=== PATIENT | male | born 1980 | race Caucasian/White ===

== ENCOUNTER 2024-07-21 21:57 | Emergency (ER) | payer MEDICAID ==
[~2024-07-21] VITALS: Ht 167.6 cm; Wt 129.3 kg
[2024-07-21 22:06] VITALS: PULSE 85; RESP 15; O2SAT 99
[2024-07-21] MEDS ORDERED: MIDAZOLAM HCL 100 MG in DEXT 5% WATER 80 ML IV ONE (22:30)
[2024-07-21] MEDS: MIDAZOLAM 100MG/100ML PMX 100 ML IV NR (22:49)
[2024-07-21 22:50] LABS: HEMATOCRIT. 22.7 % (42.0-52.0); MEAN CORPUSCULAR HEMOGLOBIN 27.1 pg (28.0-32.0); MEAN CORPUSCULAR HGB CONC 26.5 g/dL (31.0-37.0); MEAN CORPUSCULAR VOLUME 102.3 fL (80.0-94.0); MEAN PLATELET VOLUME 10.7 fl (7.4-10.4); PLATELET 120 x1000/uL (130-400); RED BLOOD CELL COUNT 2.22 mill/uL (4.7-6.1); RED CELL DISTRIBUTION WIDTH 23.3 % (11.6-14.6); WHITE BLOOD COUNT 34.3 x1000/uL (4.5-11.0)
[2024-07-21] MEDS: OCTREOTIDE ACETATE 50 MCG/ML 1ML IV STA (22:50)
[2024-07-21] MEDS: PANTOPRAZOLE SODIUM 40 MG/VIAL IV STA (22:50)
[2024-07-21 22:59] LABS: DIFFERENTIAL COMMENT 1
[2024-07-21 23:01] LABS: CHLORIDE 113 mEq/L (98-107); SODIUM 151 mEq/L (136-145)
[2024-07-21 23:02] LABS: CARBON DIOXIDE 11 mEq/L (21-32); INR 1.5; PARTIAL THROMBOPLASTIN TIME 24.6 sec (23.4-31.0)
[2024-07-21 23:07] LABS: CREATININE 2.7 mg/dL (0.6-1.3); GLUCOSE 164 mg/dL (70-105); UREA NITROGEN BLOOD 61 mg/dL (9-23)
[2024-07-21 23:09] LABS: ALANINE AMINOTRANSFERASE 31 IU/L (10-49); ALBUMIN 2.3 g/dL (3.2-4.8); ASPARTATE AMINOTRANSFERASE 69 IU/L (<34); BILIRUBIN DIRECT 1.1 mg/dL (<=3.0); CREATINE KINASE 341 IU/L (46-171); LACTATE DEHYDROGENASE 312 IU/L (120-246)
[2024-07-21 23:10] LABS: ANISOCYTOSIS 2+; PLATELET ESTIMATE DECREASED; PROTEIN TOTAL 5.9 g/dL (6.0-8.3)
[2024-07-21] MEDS: PIPERACILLIN/TAZO 3.375G/50ML 50 ML IV ONE (23:17)
[2024-07-21] MEDS: NOREPINEPHRINE 8MG/250ML PMX 250 ML IV ONE (23:17)
[2024-07-21 23:18] LABS: ETHANOL BLOOD < 10 mg/dL (<10); POTASSIUM 6.2 mEq/L (3.5-5.1); TROPONIN I HIGH SENSITIVITY 154 ng/L (3.0-53)
[2024-07-21] MEDS: OCTREOTIDE ACETATE 50 MCG/ML 1ML IV NR (23:20)
[2024-07-21 23:21] LABS: LACTIC ACID 24.4 mmol/L (0.4-2.0)
[2024-07-21] MEDS: ETOMIDATE 2MG/ML 10ML VIAL IV ONE (23:22)
[2024-07-21] MEDS: SUCCINYLCHOLINE CHLORIDE 200MG/10ML IV ONE (23:22)
[2024-07-22] VITALS (8 sets, daily range): PULSE 115–141; RESP 23–37; O2SAT 97–100
[2024-07-22] MEDS ORDERED: INSULIN REGULAR (HUMULIN R) 1000UNITS/10ML VIAL IV ONE (00:15)
[2024-07-22] MEDS ORDERED: CALCIUM GLUCONATE 1,000 MG in DEXT 5% WATER 100 ML IV ONE (00:15)
[2024-07-22] MEDS ORDERED: DEXTROSE 50% WATER 50ML SYRINGE IV ONE (00:15)
[2024-07-22] MEDS: OCTREOTIDE 1,000 MCG in SODIUM CHLORIDE 0.9% 100 ML IV STA (00:22)
[2024-07-22] MEDS: VANCOMYCIN 1G PREMIX 200 ML IV ONE (00:38)
[2024-07-22] MEDS: NOREPINEPHRINE 8MG/250ML PMX 250 ML IV ONE (01:06)
[2024-07-22 01:28] LABS: BG BASE EXCESS -17.4 mmol/L (-2.0-3.0); BG CARBOXYHEMOGLOBIN 0.3 % (0.5-1.5); BG DEOXYHEMOGLOBIN 1.5 % (0.0-5.0); BG FRACTION INSPIRED OXYGEN 100; BG METHEMOGLOBIN 0.3 % (0.5-1.5); BG OXYGEN SATURATION 98.5 % (94.0-98.0); BG OXYHEMOGLOBIN 97.9 % (94.0-98.0); BG PCO2 42.3 mmHg (35.0-48.0); BG PEEP (cmH2O) 0 cmH2O; BG PH 7.071 (7.350-7.450); BG SAMPLE SITE RIGHT RADIAL; BG TOTAL HEMOGLOBIN 11.8 g/dL (13.5-17.5); BG VENT MODE VENT - AC
[2024-07-22 01:50] LABS: HEMATOCRIT 41.5 % (42.0-52.0); HEMOGLOBIN 12.6 g/dL (14.0-18.0)
[2024-07-22] MEDS: CALCIUM GLUCONATE 1GM PREMIX 50 ML IV NR ×2 (02:08→17:58)
[2024-07-22] MEDS: SODIUM BICARBONATE 8.4% 50MEQ/50ML SYR IV NR ×3 (02:08→17:58)
[2024-07-22 02:23] LABS: TROPONIN I HIGH SENSITIVITY 244 ng/L (3.0-53)
[2024-07-22] MEDS: INSULIN REGULAR (HUMULIN R) 1000UNITS/10ML VIAL IV NR (02:23)
[2024-07-22] MEDS: DEXTROSE 50% WATER 50ML SYRINGE IV NR ×2 (02:23)
[2024-07-22] MEDS: ALBUTEROL (0.083%) 2.5MG/3ML NEB HHN SCH (02:30)
[2024-07-22] MEDS: LACTATED RINGERS IV NR (02:31)
[2024-07-22] MEDS ORDERED: ALBUTEROL (0.083%) 2.5MG/3ML NEB ONE (03:12)
[2024-07-22] MEDS ORDERED: PROPOFOL 10MG/ML 100ML 100 ML IV PRN (04:00)
[2024-07-22] MEDS: OCTREOTIDE 1,000 MCG in SODIUM CHLORIDE 0.9% 98 ML IV SCH (04:29)
[2024-07-22] MEDS: PANTOPRAZOLE 80 MG in SODIUM CHLORIDE 0.9% 100 ML IV SCH (05:11)
[2024-07-22 05:19] LABS: INR 2.3; PROTHROMBIN TIME 24.5 sec (9.6-11.0)
[2024-07-22 05:25] LABS: POTASSIUM 4.3 mEq/L (3.5-5.1)
[2024-07-22 05:27] LABS: CALCIUM 7.3 mg/dL (8.7-10.4)
[2024-07-22 05:36] LABS: T4 FREE 0.6 ng/dL (0.89-1.76); THYROID STIMULATING HORMONE 1.7 uIU/mL (0.55-4.78)
[2024-07-22 05:56] LABS: AMMONIA 130 uMol/L (<32)
[2024-07-22] MEDS: PIPERACILLIN/TAZO 3.375G/50ML 50 ML IV SCH (06:11)
[2024-07-22] MEDS: BLOOD SUGAR DIAGNOSTIC STRIP TEST SCH (06:27)
[2024-07-22] MEDS ORDERED: VANCOMYCIN 1G PREMIX 200 ML IV SCH (06:30)
[2024-07-22] MEDS: VANCOMYCIN 750MG PMX (XELLIA) 150 ML IV NR (06:53)
[2024-07-22] MEDS: ACETAMINOPHEN 1000MG/100ML 100 ML IV NR (07:47)
[2024-07-22] MEDS: NOREPINEPHRINE 8MG/250ML PMX 250 ML IV PRN (08:51)
[2024-07-22] MEDS: SODIUM CHLORIDE 0.9% 1,000 ML IV ONE ×2 (08:53→17:59)
[2024-07-22 09:04] LABS: HEMATOCRIT 40.2 % (42.0-52.0); HEMOGLOBIN 11.7 g/dL (14.0-18.0); MEAN CORPUSCULAR HEMOGLOBIN 28.4 pg (28.0-32.0); MEAN CORPUSCULAR HGB CONC 29.1 g/dL (31.0-37.0); MEAN CORPUSCULAR VOLUME 97.5 fL (80.0-94.0); PLATELET 84 x1000/uL (130-400); RED BLOOD CELL COUNT 4.13 mill/uL (4.7-6.1); RED CELL DISTRIBUTION WIDTH 19.2 % (11.6-14.6)
[2024-07-22 09:19] LABS: LACTIC ACID 11.9 mmol/L (0.4-2.0)
[2024-07-22 09:20] LABS: WHITE BLOOD COUNT 55.4 x1000/uL (4.5-11.0)
[2024-07-22] MEDS ORDERED: EPINEPHRINE 10 MG in SODIUM CHLORIDE 0.9% 240 ML IV PRN ×2 (09:30→17:15)
[2024-07-22] MEDS: PANTOPRAZOLE SODIUM 40 MG/VIAL IV SCH (09:42)
[2024-07-22] MEDS: INSULIN LISPRO 100 UNITS/ML SUBCUT SCH (09:42)
[2024-07-22] MEDS: DEXTROSE 50% WATER 50ML SYRINGE IV PRN (09:42)
[2024-07-22] MEDS: OCTREOTIDE 1,000 MCG in SODIUM CHLORIDE 0.9% 98 ML IV ONE (10:50)
[2024-07-22] MEDS: THIAMINE HCL 200 MG in SODIUM CHLORIDE 0.9% 98 ML IV SCH (10:51)
[2024-07-22 11:53] LABS: BG BASE EXCESS -20.4 mmol/L (-2.0-3.0); BG CARBOXYHEMOGLOBIN 0.1 % (0.5-1.5); BG DEOXYHEMOGLOBIN 11.8 % (0.0-5.0); BG FRACTION INSPIRED OXYGEN 100; BG HCO3 ACT 8.3 mmol/L (21.0-28.0); BG METHEMOGLOBIN 0.5 % (0.5-1.5); BG OXYGEN SATURATION 88.1 % (94.0-98.0); BG OXYHEMOGLOBIN 87.6 % (94.0-98.0); BG PCO2 28.9 mmHg (35.0-48.0); BG PH 7.077 (7.350-7.450); BG PO2 72.6 mmHg (83.0-108.0); BG SAMPLE SITE RIGHT RADIAL; BG TOTAL HEMOGLOBIN 11.5 g/dL (13.5-17.5); BG VENT MODE VENT - AC
[2024-07-22] MEDS ORDERED: LACTULOSE 20G/30ML UDC NG SCH (12:30)
[2024-07-22] MEDS: DEXT 5%/0.9% NACL 1,000 ML IV SCH (13:09)
[2024-07-22] MEDS ORDERED: SODIUM CHLORIDE 0.9% 1,000 ML IV NR (14:45)
[2024-07-22] MEDS: EPINEPHRINE 10 MG in SODIUM CHLORIDE 0.9% 240 ML IV PRN (16:04)
[2024-07-22 16:15] LABS: HEMATOCRIT 32.7 % (42.0-52.0); HEMOGLOBIN 9.5 g/dL (14.0-18.0); MEAN CORPUSCULAR HEMOGLOBIN 28.4 pg (28.0-32.0); MEAN CORPUSCULAR HGB CONC 28.9 g/dL (31.0-37.0); MEAN CORPUSCULAR VOLUME 98.3 fL (80.0-94.0); PLATELET 76 x1000/uL (130-400); RED BLOOD CELL COUNT 3.33 mill/uL (4.7-6.1); RED CELL DISTRIBUTION WIDTH 19.5 % (11.6-14.6); WHITE BLOOD COUNT 33.2 x1000/uL (4.5-11.0)
[2024-07-22 16:28] LABS: IRON 24 ug/dL (65-175)
[2024-07-22 16:31] LABS: TOTAL IRON BINDING CAPACITY 262 ug/dl (250-425)
[2024-07-22 16:39] LABS: VITAMIN B12 SERUM 1520 pg/mL (211-911)
[2024-07-22 16:51] LABS: HEPATITIS B SURFACE ANTIGEN NEGATIVE (Negative)
[2024-07-22] MEDS: SUCRALFATE 1G TABLET PO SCH (17:00)
[2024-07-22 17:07] LABS: HEPATITIS A AB IGM NEGATIVE (Negative)
[2024-07-22 17:08] LABS: HEPATITIS B CORE AB IGM NEGATIVE (Negative); HEPATITIS C AB NON REACTIVE (Neg) (Negative)
[2024-07-22] MEDS ORDERED: CALCIUM GLUCONATE 1,000 MG in DEXT 5% WATER 90 ML IV ONE (17:15)
[2024-07-22] MEDS ORDERED: PHENYLEPHRINE 100 MG in DEXT 5% WATER 240 ML IV PRN (17:15)
[2024-07-22 17:42] LABS: BG CARBOXYHEMOGLOBIN 0.3 % (0.5-1.5); BG DEOXYHEMOGLOBIN 11.9 % (0.0-5.0); BG FRACTION INSPIRED OXYGEN 100; BG HCO3 ACT 5.9 mmol/L (21.0-28.0); BG METHEMOGLOBIN 0.7 % (0.5-1.5); BG OXYHEMOGLOBIN 87.1 % (94.0-98.0); BG PCO2 31.2 mmHg (35.0-48.0); BG PH 6.895 (7.350-7.450); BG PO2 79.7 mmHg (83.0-108.0); BG SAMPLE SITE RIGHT RADIAL; BG VENT MODE VENT - AC
[2024-07-22] MEDS: DEXT 10% WATER 1,000 ML IV SCH (17:59)
[2024-07-22] MEDS ORDERED: PHENOBARBITAL SODIUM 65MG/ML 1ML IV NR (18:00)
[2024-07-22] MEDS: PHENYLEPHRINE 100 MG in DEXT 5% WATER 240 ML IV PRN (18:26)
[2024-07-22] MEDS ORDERED: NOREPINEPHRINE 32 MG in DEXT 5% WATER 218 ML IV PRN (20:00)
[2024-07-22] MEDS: ACETAMINOPHEN 1000MG/100ML 100 ML IV PRN (20:14)
[2024-07-22] MEDS: NOREPINEPHRINE 32 MG in DEXT 5% WATER 218 ML IV PRN (20:28)
[2024-07-22] MEDS ORDERED: RIFAXIMIN 550 MG TABLET PO SCH (21:00)
[2024-07-22] MEDS ORDERED: PANTOPRAZOLE SODIUM 40 MG/VIAL IV SCH (21:00)
[2024-07-22] MEDS ORDERED: DEXMEDETOMIDINE 400 MCG/100 ML 100 ML IV PRN (21:15)
[2024-07-22] MEDS ORDERED: VASOPRESSIN 20 UNIT in SODIUM CHLORIDE 0.9% 99 ML IV PRN (21:30)
[2024-07-22 21:41] LABS: CHLORIDE 115 mEq/L (98-107); SODIUM 152 mEq/L (136-145)
[2024-07-22 21:43] LABS: CALCIUM 6.7 mg/dL (8.7-10.4)
[2024-07-22] MEDS: DEXMEDETOMIDINE 400 MCG/100 ML 100 ML IV PRN (21:43)
[2024-07-22 21:47] LABS: GLUCOSE 150 mg/dL (70-105); UREA NITROGEN BLOOD 65 mg/dL (9-23)
[2024-07-22 22:06] LABS: CARBON DIOXIDE < 10 mEq/L (21-32)
[2024-07-22 22:07] LABS: CREATININE 5.3 mg/dL (0.6-1.3)
[2024-07-22] MEDS: SODIUM BICARBONATE 150 MEQ in DEXTROSE 5% WATER 850 ML IV SCH (22:28)
[2024-07-22] MEDS: VASOPRESSIN 20 UNIT in SODIUM CHLORIDE 0.9% 99 ML IV PRN (23:30)
[2024-07-22] MEDS ORDERED: HYDROCORTISONE SOD SUCCINATE 100 MG/2 ML VIAL IV SCH (23:45)
[2024-07-23] MEDS ORDERED: LACTATED RINGERS 500 ML IV NR
[2024-07-23 00:04] VITALS: PULSE 103; RESP 35
[2024-07-23] MEDS ORDERED: INSULIN REGULAR (HUMULIN R) 1000UNITS/10ML VIAL IV NR (00:15)
[2024-07-23 01:49] LABS: BG BASE EXCESS -28.9 mmol/L (-2.0-3.0); BG CARBOXYHEMOGLOBIN 0.3 % (0.5-1.5); BG DEOXYHEMOGLOBIN 14.3 % (0.0-5.0); BG FRACTION INSPIRED OXYGEN 100; BG HCO3 ACT 4.3 mmol/L (21.0-28.0); BG METHEMOGLOBIN 0.7 % (0.5-1.5); BG OXYGEN SATURATION 85.6 % (94.0-98.0); BG OXYHEMOGLOBIN 84.7 % (94.0-98.0); BG PCO2 27.9 mmHg (35.0-48.0); BG PH 6.801 (7.350-7.450); BG PO2 70.4 mmHg (83.0-108.0); BG SAMPLE SITE CL; BG TOTAL HEMOGLOBIN 9.5 g/dL (13.5-17.5); BG VENT MODE VENT - AC
[2024-07-23] MEDS: SODIUM BICARBONATE 8.4% 50MEQ/50ML SYR IV NR ×2 (02:13→04:58)
[2024-07-23 02:52] LABS: HEMATOCRIT 33.5 % (42.0-52.0); HEMOGLOBIN 9.1 g/dL (14.0-18.0); MEAN CORPUSCULAR HEMOGLOBIN 28.8 pg (28.0-32.0); MEAN CORPUSCULAR HGB CONC 27.1 g/dL (31.0-37.0); MEAN CORPUSCULAR VOLUME 106.1 fL (80.0-94.0); PLATELET 69 x1000/uL (130-400); RED BLOOD CELL COUNT 3.16 mill/uL (4.7-6.1)
[2024-07-23 03:03] LABS: LACTIC ACID 20.7 mmol/L (0.4-2.0)
[2024-07-23] MEDS ORDERED: MIDAZOLAM 100MG/100ML PMX 100 ML IV PRN ×2 (03:45→04:00)
[2024-07-23 04:29] VITALS: PULSE 93; RESP 36; O2SAT 97
[2024-07-23 04:34] LABS: HEMATOCRIT 32.2 % (42.0-52.0); HEMOGLOBIN 8.6 g/dL (14.0-18.0); MEAN CORPUSCULAR HEMOGLOBIN 29.1 pg (28.0-32.0); MEAN CORPUSCULAR HGB CONC 26.8 g/dL (31.0-37.0); MEAN CORPUSCULAR VOLUME 108.7 fL (80.0-94.0); PLATELET 58 x1000/uL (130-400); RED BLOOD CELL COUNT 2.96 mill/uL (4.7-6.1); RED CELL DISTRIBUTION WIDTH 21.3 % (11.6-14.6)
[2024-07-23] MEDS: CALCIUM GLUCONATE 1GM PREMIX 50 ML IV NR (06:00)
[2024-07-23 07:05] LABS: PROTHROMBIN TIME 49.6 sec (9.6-11.0)
[2024-07-23 07:31] LABS: CHLORIDE 105 mEq/L (98-107); SODIUM 146 mEq/L (136-145)
[2024-07-23 07:37] LABS: GLUCOSE 267 mg/dL (70-105); UREA NITROGEN BLOOD 60 mg/dL (9-23)
[2024-07-23 07:39] LABS: ALBUMIN 1.2 g/dL (3.2-4.8); BILIRUBIN DIRECT 1.3 mg/dL (<=3.0); BILIRUBIN TOTAL 2.2 mg/dL (0.1-1.0)
[2024-07-23 07:50] LABS: ALANINE AMINOTRANSFERASE 2574 IU/L (10-49)
[2024-07-23 08:00] VITALS: PULSE 79; RESP 26; O2SAT 89
[2024-07-23 08:52] LABS: ASPARTATE AMINOTRANSFERASE > 6000 IU/L (<34)
[2024-07-23 08:54] LABS: POTASSIUM 6.4 mEq/L (3.5-5.1)
[2024-07-23 08:55] LABS: CALCIUM 5.6 mg/dL (8.7-10.4); CARBON DIOXIDE < 10 mEq/L (21-32)
[2024-07-23 08:56] LABS: AMMONIA 271 uMol/L (<32)
[2024-07-23 09:09] VITALS: BP 67/20; PULSE 81; RESP 20; TEMP 35.4; O2SAT 98
== END 2024-07-23 12:22 ==
LOC: ER 21:57 → CANBEDREQ 07-23 11:06 → ER 07-23 12:22
DX: A02.1 Salmonella sepsis (principal); J96.01 Acute respiratory failure with hypoxia; K92.2 Gastrointestinal hemorrhage, unspecified; R57.8 Other shock; F10.20 Alcohol dependence, uncomplicated; N17.9 Acute kidney failure, unspecified; I21.4 Non-ST elevation (NSTEMI) myocardial infarction; Z46.82 Encounter for fitting and adjustment of non-vascular catheter; Z59.71 Insufficient health insurance coverage; D53.9 Nutritional anemia, unspecified; A41.9 Sepsis, unspecified organism; Z87.01 Personal history of pneumonia (recurrent); Z88.0 Allergy status to penicillin
CPT/HCPCS: 80202; 80076; 80053; 80048 ×2; 80320; 82140; 82248; 82550 ×2; 82607; 82728; 82962 ×2; 83880; 84439; 83540; 83550; 83605; 83615; 83690; 83735; 84443; 85014 ×2; 85018 ×2; 85027; 85025; 85044; 85610; 85730; 86850; 86900; 86901; 86920; 87040; 84484 ×2; 36415 ×2; 86705; 86709; 84145; 71045; 31500; 93005; 94070; 98960; 94644; 96365; 96375 ×2; 99291; 99292; 86927; 87340; 81003; 82553; 87086; 87070 ×2; 70450; 74176; 36556; 96367; 96376; J2354 ×2; J3490 ×9; J2250 ×2; J2470 ×3; J2543 ×2; J7050 ×5; Z7610 ×6; J3370 ×2; J0610 ×2; J1720; J1815; J3411; J7060 ×2; J7070 ×2; Q9957; 36430; 94002; 94664; J2560; J2704; P9016; P9017; G0480; J0131